=== PATIENT | female | born 1945 | race Caucasian/White ===

== ENCOUNTER 2020-09-02 12:42 | Inpatient (IN) | payer MEDICARE, OTHER ==
[~2020-09-02] VITALS: Ht 160 cm; Wt 56.7 kg
[~2020-09-02 12:42] MED LIST: AMLODIPINE BESYL5 MG PO; BENADRYL 50MG C50 MG PO; BISMATROL262 MG/15 PO; HYDROCHLOROTH12.5 M1 PO; LEVAQUIN500 MG PO; POTASSIUM CHLO20 ME2 PO; ROBITUSSIN DM UD5 ML PO; TOPROL XL25 MG PO
[2020-09-02 16:28] LABS: HEMOGLOBIN 11.9 gm/dl (12.3-15.3); RED BLOOD COUNT 3.94 M/UL (4.00-5.10); WHITE BLOOD COUNT 5.6 K/UL (4.5-11.0)
[2020-09-02 16:56] LABS: BUN/CREATININE RATIO 21 (0-10)
[2020-09-02] MEDS ORDERED: METOPROLOL SUCC25 MG PO (23:41)
[2020-09-02] MEDS ORDERED: HYDROCODON-ACE1 EAC2 PO (23:41)
[2020-09-02] MEDS ORDERED: HYDROCHLOROTH12.5 MG PO (23:42)
[2020-09-02] MEDS ORDERED: ZESTRIL 40 MG T40 MG PO (23:42)
[2020-09-02] MEDS ORDERED: TIZANIDINE HCL4 M1 PO (23:43)
[2020-09-04 04:16] LABS: RED BLOOD COUNT 3.66 M/UL (4.00-5.10); WHITE BLOOD COUNT 4.8 K/UL (4.5-11.0)
[2020-09-04 04:55] LABS: BUN/CREATININE RATIO 18 (0-10)
[2020-09-05 04:35] LABS: BUN/CREATININE RATIO 27 (0-10)
[2020-09-06 07:17] LABS: BUN/CREATININE RATIO 20 (0-10)
[2020-09-06] MEDS ORDERED: ZOFRAN ODT 4 MG4 MG PO (10:47)
[2020-09-06] MEDS ORDERED: PROTONIX 40 MG40 M1 PO (10:47)
[2020-09-06] MEDS ORDERED: LISINOPRIL10 MG PO (10:47)
--- NOTE | 2020-09-06 11:17 | NUR ---
PATIENT CLAIMS SHE FEELS SOMETHING IN HER THROAT. SHE ALSO CLAIMS THAT SHE "HAS BEEN JERKING ALL OVER" SINCE I THREW UP THIS MORNING. PROVIDER IS AWARE OF RANOLDS CLAIMS.
== END 2020-09-06 17:21 | disposition home or self-care (01) | DRG 392 ==
LOC: ER1 12:42 → MED SURG 4 18:24 → CDU 18:24 → MED SURG 4 22:37
PROVIDERS: Emergency Medicine; Physician Assistant Medical; ADMIT Internal Medicine Infectious Disease
DX: A08.4 Viral intestinal infection, unspecified (principal); R55 Syncope and collapse; E86.0 Dehydration; I16.0 Hypertensive urgency; G89.29 Other chronic pain; I10 Essential (primary) hypertension; Z20.822 Contact with and (suspected) exposure to COVID-19; M19.90 Unspecified osteoarthritis, unspecified site; M54.5 Low back pain; Z87.891 Personal history of nicotine dependence
CPT/HCPCS: ECHO; 36415; 70450; 71045; 72128; 72131; 76705; 80048; 80053; 81001; 82550; 82553; 83690; 83735; 83874; 83880; 84443; 84484; 85025; 85027; 92610; 93005; 93306; 93880; 96365; 96366; 96375; 97116-GP-CQ; 97162; 97530-GP-CQ; 99285; C9113; G0378; J0360; J2405; J3480; J7120; J7121; U0002

== ENCOUNTER 2020-11-29 19:31 | Emergency (ER) | payer MEDICARE, OTHER ==
[~2020-11-29 19:31] MED LIST changes: +HYDROCHLOROTH12.5 MG PO; +HYDROCODON-ACE1 EAC2 PO; +LISINOPRIL10 MG PO; +METOPROLOL SUCC25 MG PO; +PROTONIX 40 MG40 M1 PO; +TIZANIDINE HCL4 M1 PO; +ZESTRIL 40 MG T40 MG PO; +ZOFRAN ODT 4 MG4 MG PO
[2020-11-29 20:09] LABS: HEMOGLOBIN 12.8 gm/dl (12.3-15.3); RED BLOOD COUNT 4.43 M/UL (4.00-5.10); WHITE BLOOD COUNT 14.6 K/UL (4.5-11.0)
[2020-11-29 20:32] LABS: BUN/CREATININE RATIO 29 (0-10)
[2020-11-30] MEDS ORDERED: OMNICEF 300 MG300 MG PO (04:10)
== END 2020-11-30 05:30 | disposition home or self-care (01) ==
LOC: ER1 19:31
PROVIDERS: Physician Assistant
DX: N39.0 Urinary tract infection, site not specified (principal); I11.9 Hypertensive heart disease without heart failure; Z20.822 Contact with and (suspected) exposure to COVID-19
CPT/HCPCS: 71045; 80053; 81001; 82550; 82553; 83690; 84484; 85025; 85379; 85610; 85730; 87086; 93005; 96374; 99285; J0696; J7030; J7050; Q9967; U0002

== ENCOUNTER 2021-09-13 15:55 | Emergency (ER) | payer MEDICARE, OTHER ==
[~2021-09-13 15:55] MED LIST changes: +OMNICEF 300 MG300 MG PO
[2021-09-13 19:23] LABS: RED BLOOD COUNT 4.48 M/UL (4.00-5.10); WHITE BLOOD COUNT 6.7 K/UL (4.5-11.0)
== END 2021-09-13 22:30 | disposition home or self-care (01) ==
LOC: ER1 15:55
PROVIDERS: Nurse Practitioner
DX: Z00.8 Encounter for other general examination (principal); I11.9 Hypertensive heart disease without heart failure
CPT/HCPCS: 81001; 85025; 99283

== ENCOUNTER 2021-10-10 17:08 | Inpatient (IN) | payer MEDICARE, OTHER ==
[~2021-10-10] VITALS: Ht 160 cm; Wt 52.6 kg
[2021-10-10 22:24] LABS: HEMOGLOBIN 11.7 gm/dl (12.3-15.3); RED BLOOD COUNT 3.72 M/UL (4.00-5.10); WHITE BLOOD COUNT 7.5 K/UL (4.5-11.0)
[2021-10-10 23:53] LABS: BUN/CREATININE RATIO 62 (0-10)
[2021-10-11] MEDS ORDERED: LISINOPRIL40 MG PO ×2 (10:19→10:30)
[2021-10-11] MEDS ORDERED: HYDROCODON-ACE1 EAC2 PO (10:31)
[2021-10-11] MEDS ORDERED: SERTRALINE HCL50 MG PO (10:34)
--- NOTE | 2021-10-11 17:20 | NUR ---
Notified Dr. Self of patient taking out her IV and refusing a new IV.
[2021-10-12 02:35] LABS: HEMOGLOBIN 11.1 gm/dl (12.3-15.3); RED BLOOD COUNT 3.54 M/UL (4.00-5.10)
[2021-10-12 02:38] LABS: WHITE BLOOD COUNT 5.3 K/UL (4.5-11.0)
[2021-10-12 03:09] LABS: BUN/CREATININE RATIO 38 (0-10)
[2021-10-13 03:23] LABS: BUN/CREATININE RATIO 45 (0-10)
[2021-10-13 03:30] LABS: HEMOGLOBIN 10.8 gm/dl (12.3-15.3); RED BLOOD COUNT 3.44 M/UL (4.00-5.10); WHITE BLOOD COUNT 4.9 K/UL (4.5-11.0)
[2021-10-14 08:55] LABS: BUN/CREATININE RATIO 34 (0-10)
[2021-10-14 09:00] LABS: HEMOGLOBIN 11.5 gm/dl (12.3-15.3); RED BLOOD COUNT 3.72 M/UL (4.00-5.10); WHITE BLOOD COUNT 4.7 K/UL (4.5-11.0)
[2021-10-15 07:08] LABS: HEMOGLOBIN 11.8 gm/dl (12.3-15.3); RED BLOOD COUNT 3.81 M/UL (4.00-5.10); WHITE BLOOD COUNT 4.2 K/UL (4.5-11.0)
[2021-10-15 07:25] LABS: BUN/CREATININE RATIO 37 (0-10)
[2021-10-16 08:21] LABS: RED BLOOD COUNT 3.82 M/UL (4.00-5.10); WHITE BLOOD COUNT 4.6 K/UL (4.5-11.0)
[2021-10-16 08:39] LABS: BUN/CREATININE RATIO 38 (0-10)
[2021-10-17 04:29] LABS: HEMOGLOBIN 12.8 gm/dl (12.3-15.3); RED BLOOD COUNT 4.04 M/UL (4.00-5.10); WHITE BLOOD COUNT 4.2 K/UL (4.5-11.0)
[2021-10-17 04:59] LABS: BUN/CREATININE RATIO 46 (0-10)
[2021-10-17] MEDS ORDERED: AMLODIPINE BESYL5 MG PO (10:13)
[2021-10-17] MEDS ORDERED: TYLENOL EXTRA500 MG PO (10:13)
[2021-10-18 07:41] LABS: HEMOGLOBIN 11.9 gm/dl (12.3-15.3); RED BLOOD COUNT 3.92 M/UL (4.00-5.10)
[2021-10-18 08:15] LABS: BUN/CREATININE RATIO 43 (0-10)
--- NOTE | 2021-10-18 22:34 | NUR ---
SPOKE WITH [facility] AND THEY ARE UNABLE TO PICK PATIENT UP UNTIL AROUND [phone].
--- NOTE | 2021-10-19 04:02 | NUR ---
CALLED [facility] TO CHECK ON STATUS OF PATIENT PICKUP. AMBULANCE SERVICE STATED IT WOULD BE BETWEEN 7-8AM BEFORE PATIENT COULD BE PICKED UP AND TRANSPORTED TO REHAB FACILITY.
--- NOTE | 2021-10-19 08:23 | NUR ---
ems called stated they were in route to get pt
== END 2021-10-19 09:00 | DRG 536 ==
LOC: ER1 17:08 → CDU 21:46 → M/S 21:46
PROVIDERS: Internal Medicine; Preventive Medicine Occupational Medicine; ADMIT Internal Medicine
DX: S32.591A Other specified fracture of right pubis, initial encounter for closed fracture (principal); F03.90 Unspecified dementia, unspecified severity, without behavioral disturbance, psychotic disturbance, mood disturbance, and anxiety; Z20.822 Contact with and (suspected) exposure to COVID-19; W18.30XA Fall on same level, unspecified, initial encounter; I10 Essential (primary) hypertension; F17.220 Nicotine dependence, chewing tobacco, uncomplicated; E87.6 Hypokalemia; Z83.3 Family history of diabetes mellitus; Z28.310 Unvaccinated for COVID-19; Z91.14 Patient's other noncompliance with medication regimen
CPT/HCPCS: 36415; 73552; 73700; 80048; 80053; 82962; 83036; 83540; 83550; 83735; 84100; 85025; 85027; 96374; 97116-GP-CQ; 97161; 97166; 97530; 97535; 99285; J1170; J1630; J1650